=== PATIENT | male | born 1975 | race Caucasian/White ===

== ENCOUNTER 2019-09-23 10:36 | Emergency (ER) | payer OTHER, SELFPAY ==
[2019-09-23 10:48] VITALS: BP 156/92; PULSE 72; RESP 16; TEMP 36.6; O2SAT 99
--- NOTE | 2019-09-23 11:06 | ED.GENADULT ---
HPI - General Adult General Chief complaint: Neck Pain/Injury Stated complaint: neck pain Time Seen by Provider: 09/23/19 11:06 Source: patient and RN notes reviewed Mode of arrival: ambulatory Limitations: no limitations History of Present Illness HPI narrative: 43-year-old male presents with complaints of right posterior cervical pain and posterior shoulder radiating into RT arm and fingers for the past 2 days. IcyHot and Tylenol (last [employer] to [facility] today) without relief. Vinny believes that he slept wrong Wednesday night and pain is getting worse. Complains of intermittent numbness or tingling to RT arm, thumb and index finger. No known injury. Hurts with movement of neck to the RT and movement of RT shoulder. Pain radiating from posterior neck into shoulder down arm into thumb and index finger. No loss of mobility. No swelling. Exacerbating factor is movement. Relieving factor is messaging of area, rest, and pain medication. The dominant hand is the RIGHT HAND. Remains active. Some parts of this dictation were generated by voice recognition software and may contain typographical and/or grammatical inaccuracies. Related Data Home Medications Medication Instructions Recorded Confirmed lisinopril 09/23/19 metformin mg 09/23/19 simvastatin mg 09/23/19 Allergies Allergy/AdvReac Type Severity Reaction Status Date / Time No Known Allergies Allergy Verified 09/26/19 09:37 Review of Systems Review of Systems: Narrative: CONSTITUTIONAL: Denies fever, chills, sweats. EYES: Denies visual changes, redness, discharge. ENT: Denies rhinorrhea, congestion, sore throat, otalgia. CARDIOVASCULAR: Denies chest pain, palpitations, edema. RESPIRATORY: Denies dyspnea, wheezing, cough. GASTROINTESTINAL: Denies abdominal pain, nausea, vomiting, diarrhea. GENITOURINARY: Denies dysuria, hematuria, abnormal discharge. SKIN: Denies rash or itching. MUSCULOSKELETAL: Denies acute back pain or myalgia. Complains RT posterior neck and posterior shoulder pain. NEUROLOGIC: Denies numbness or focal weakness. PSYCHIATRIC: Denies anxiety or depression. All other systems reviewed & are unremarkable except as noted in HPI and below. [facility] Social History Social History (Updated 09/23/19 @ 15:00 by ANGEL Duckworth) Smoking status: Never smoker Second hand tobacco smoke exposure: No Alcohol intake: never Substance use: never Gender identity (if verbalized by the patient): Male Comments At time of signature, agree with nurse past medical, surgical, social, and family history. There is no relevant family history pertinent to the presenting complaint. Exam Narrative: Exam Narrative: GENERAL: This is a well-nourished, well-developed patient, in no apparent distress. Talks in full sentences and ambulates with steady gait without dyspnea. HEAD: normocephalic, atraumatic. EYES: PERRL. Sclera clear/white. Vision is grossly intact. THROAT: Mucous membranes moist, posterior pharynx clear. NECK: Neck supple, non-tender without lymphadenopathy, masses or thyromegaly. Trachea is midline. Skin intact, no swelling, no step offs, no deformity. Normal strength and sensation of UE and normal radial pulse. No enlarged nodes. No erythema. CARDIOVASCULAR: Regular rate and rhythm without murmurs, gallops, or rubs. RESPIRATORY: Clear to auscultation. Breath sounds equal bilaterally. No wheezes, rales, or rhonchi. GASTROINTESTINAL: Abdomen soft, non-tender, nondistended. Bowel sounds are active. No hepato-splenomegaly, or palpable masses. No guarding. SKIN: warm, intact with no suspicious lesions or rash, good texture and turgor. NEURO: awake, alert, and oriented to person, place and time. There were no obvious focal neurologic abnormalities. EXTREMITIES: Without cyanosis, clubbing or edema. RT posterior shoulder with moderate reproducible tenderness on palpation and manipulation. No swelling. with and palpation. No swelling, deformity, or ecch
[2019-09-23] MEDS: KETOROLAC (*BKC) 60 MG/2 ML VIAL IM (11:21)
== END 2019-09-23 11:53 | disposition home or self-care (01) ==
PROVIDERS: Emergency Provider Nurse Practitioner Family; PCP Emergency Medicine
DX: S16.1XXA Strain of muscle, fascia and tendon at neck level, initial encounter (principal); X58.XXXA Exposure to other specified factors, initial encounter; M25.511 Pain in right shoulder; E11.9 Type 2 diabetes mellitus without complications; E78.00 Pure hypercholesterolemia, unspecified; I10 Essential (primary) hypertension
CPT/HCPCS: 96372; 99213; G0463; J1885

== ENCOUNTER 2019-09-26 09:16 | Emergency (ER) | payer OTHER, SELFPAY ==
--- NOTE | ~2019-09-26 | XR_ITS ---
EXAMINATION:[id number] DATE: 09/26/2019 11:05 INDICATION: Severe neck pain radiating down the right arm TECHNIQUE: AP, lateral, lateral swimmers and odontoid views of the cervical spine are provided. COMPARISON: None FINDINGS: Lower cervical kyphosis centered at C5-C6 where there is mild to moderate disc height loss, moderate bilateral uncovertebral osteoarthritis and prominent posterior endplate osteophytes which likely resu lting mild narrowing of the central canal. Mild disc height loss at C4-C5 and C6-C7. Odontoid is inta ct. Normal atlantoaxial interval. Vertebral body heights are normal. Mild to moderate cervical spond ylosis most prominent bilaterally at C3-C4 and on the left at C4-C5. Prevertebral soft tissues are n ormal. IMPRESSION: 1. Mild to moderate cervical spondylosis with lower cervical kyphosis. Reviewed, dictated and finalized at location A.
[2019-09-26 09:30] VITALS: BP 155/94; PULSE 70; RESP 18; TEMP 36.3; O2SAT 95
--- NOTE | 2019-09-26 10:39 | ED.NECK ---
HPI - Neck Pain/Injury General Chief Complaint: Neck Pain/Injury Stated Complaint: NECK/BACK PAIN Time Seen by Provider: 09/26/19 09:57 History of Present Illness HPI Narrative: This is a 43-year-old male who presents the emergency department with complaint of posterior neck pain radiating down right arm. Patient reports I think I have a pinched nerve . He was evaluated by his primary care doctor yesterday who told him to come to the ER if not feeling better. He denies any injury or trauma. States he woke with this approximately 3 days ago and felt like he slept wrong. He has had a history of posterior neck pain with radiculopathy in the past but never this bad. Pain radiates from the neck into the shoulder along the radial aspect of the right arm into the thumb and thenar area. No loss of motor function. Has taken ibuprofen 400 mg a few times over the last few days. Has never had x-ray, CT, MRI. Related Data Home Medications Medication Instructions Recorded Confirmed lisinopril 09/23/19 metformin mg 09/23/19 simvastatin mg 09/23/19 Allergies Allergy/AdvReac Type Severity Reaction Status Date / Time No Known Allergies Allergy Verified 09/26/19 09:37 Review of Systems Review of Systems: Narrative: CONSTITUTIONAL: Denies fever, chills, or sweats.. CARDIOVASCULAR: Denies chest pain, palpitations, or edema. RESPIRATORY: Denies cough or dyspnea. SKIN: Denies rash or itching. MUSCULOSKELETAL: Reports posterior neck pain radiating into right arm. NEUROLOGIC: Denies headache, numbness, or weakness. reports sharp pain shooting down right arm along radial aspect into thumb/thenar region. PSYCHIATRIC: Denies anxiety or depression. [facility] Past Medical History Medical History Diabetes Hypercholesteremia Hypertension Surgical History Surgical History No significant past surgical history Social History Social History (Updated 09/23/19 @ 15:00 by ANGEL Duckworth) Smoking status: Never smoker Second hand tobacco smoke exposure: No Alcohol intake: never Substance use: never Gender identity (if verbalized by the patient): Male Exam Narrative: Exam Narrative: GENERAL: Well-appearing, well-nourished, appears uncomfortable. HEAD: Normocephalic, atraumatic. EYES: sclera anicteric NECK: Supple. No LAD. No stepoff CSP, TTP along posterior neck into Rt upper trapezius area. No palpable spasms. CHEST: Clear to auscultation. No respiratory distress. HEART: Regular rate and rhythm. No murmur heard. Normal peripheral pulses. ABDOMEN: Soft, nontender, nondistended. EXTREMITIES: Normal range of motion. No edema. SKIN: Warm, dry, no rash. NEURO: No focal deficits. Strength 5/5 BUE. Sensation intact. Alert and oriented x3. PSYCH: Normal mood and affect. Course Course Emergency Course: Pt states pain is essentially unchanged. Able to find position of comfort with hands behind head. Discussed findings of CSP film and importance of rest, ice/heat therapy, pain medication and follow up with pcp. Vital Signs Vital signs: Vital Signs Temperature 36.3 C L 09/26/19 09:30 Pulse Rate 70 09/26/19 09:30 Respiratory Rate 18 09/26/19 09:30 Blood Pressure 155/94 H 09/26/19 09:30 Pulse Oximetry 95 09/26/19 09:30 Temperature 36.3 C L 09/26/19 12:13 Pulse Rate 78 09/26/19 12:13 Respiratory Rate 20 09/26/19 12:13 Blood Pressure 161/89 H 09/26/19 12:13 Pulse Oximetry 98 09/26/19 12:13 MDM - Neck Pain/Injury MDM Narrative Medical decision making narrative: Pt will be treated conservatively for cervical radiculopathy with NSAIDS and steroid dosepak given non-traumatic history, length of symptoms, and infrequent use of ice/heat/meds. Discussed possibility of outpatient imaging if symptoms persists despite treatments being applied. No current loss of function at this time. Im
[2019-09-26] MEDS: KETOROLAC (*BKC) 60 MG/2 ML VIAL IM (11:19)
[2019-09-26 12:13] VITALS: BP 161/89; PULSE 78; RESP 20; TEMP 36.3; O2SAT 98
--- NOTE | 2019-09-26 12:18 | PC.NURSE ---
Patient is getting dressed and ready for discharge at this time.
== END 2019-09-26 12:51 | disposition home or self-care (01) ==
PROVIDERS: PCP Emergency Medicine
DX: M54.12 Radiculopathy, cervical region (principal); E11.9 Type 2 diabetes mellitus without complications; E78.00 Pure hypercholesterolemia, unspecified; I10 Essential (primary) hypertension; Z79.84 Long term (current) use of oral hypoglycemic drugs
CPT/HCPCS: 72040; 96372; 99283; J1885

== ENCOUNTER → 2020-09-05 14:51 | Outpatient (CLI) | payer OTHER, SELFPAY ==
--- NOTE | ~2020-09-05 | XR_ITS ---
XR foot LT min 3V DATE: 09/05/2020 15:09 INDICATION: Right foot pain for one week. No injury TECHNIQUE: 4 views COMPARISON: None FINDINGS: There is mild posterior calcaneal enthesopathy. No fracture or dislocation, periosteal reaction or bone destruction. There is mild osteoarthritis at the first metatarsophalangeal joint. IMPRESSION: Mild posterior calcaneal enthesopathy Mild osteoarthritis at first metatarsophalangeal joint Reviewed, dictated and finalized at location A. OPERATIONS COORDINATOR
== END ==
PROVIDERS: PCP Emergency Medicine; Visit Provider Emergency Medicine
DX: M77.32 Calcaneal spur, left foot (principal); M19.072 Primary osteoarthritis, left ankle and foot
CPT/HCPCS: 73630